=== PATIENT | female | born 1990 ===

== ENCOUNTER 2020-12-20 15:19 | Emergency (ER) | payer OTHER ==
[~2020-12-20] VITALS: Ht 160 cm; Wt 110.0 kg
--- NOTE | 2020-12-20 15:30 | NUR ---
EKG [id number]
[2020-12-20 15:57] VITALS: BP 131/59
== END 2020-12-20 22:17 | disposition left against medical advice (07) ==
LOC: ER 15:21
DX: R42 Dizziness and giddiness (principal); Z53.21 Procedure and treatment not carried out due to patient leaving prior to being seen by health care provider
CPT/HCPCS: 93005